=== PATIENT | male | born 1975 | race Caucasian/White ===

== ENCOUNTER 2018-11-22 19:43 | Emergency (ER) | payer SELFPAY ==
[~2018-11-22] VITALS: Ht 172.7 cm; Wt 100.0 kg
[2018-11-22 20:43] VITALS: BP 159/101
== END 2018-11-23 01:30 | disposition left against medical advice (07) ==
LOC: ER 19:43
DX: Z53.21 Procedure and treatment not carried out due to patient leaving prior to being seen by health care provider (principal)